=== PATIENT | female | born 1980 | race American Indian/Alaskan Native ===

== ENCOUNTER 2019-02-26 03:56 | Emergency (ER) | payer SELFPAY ==
[2019-02-26] MEDS ORDERED: ASPIRIN 325 MG TAB PO ONE (04:12)
--- NOTE | 2019-02-26 04:34 | XRay Report ---
CHEST 1 VIEW 02/26/2019 4:27 AM INDICATION / CLINICAL INFORMATION: Chest Pain. COMPARISON: 03/05/10 FINDINGS: SUPPORT DEVICES: None. HEART / MEDIASTINUM: No significant abnormality. LUNGS / PLEURA: No significant pulmonary or pleural abnormality. No pneumothorax. ADDITIONAL FINDINGS: No significant additional findings. IMPRESSION: 1. No acute findings. No change. Signer Name: Leigh Sheth MD Signed: 02/26/2019 4:30 AM Workstation Name: [email or web address]
[2019-02-26 04:48] LABS: Hematocrit 23.3 % (30.3-42.9); Hemoglobin 7.2 gm/dl (10.1-14.3); Mean Corpuscular HGB Conc 31 % (30-34); Platelet Count 211 K/mm3 (140-440); Red Blood Count 4.18 M/mm3 (3.65-5.03)
[2019-02-26 04:58] LABS: BUN/Creatinine Ratio 17; Blood Urea Nitrogen 12 mg/dL (7-17); Calcium 9.3 mg/dL (8.4-10.2); Hemolysis Index 0
[2019-02-26 05:02] LABS: Mean Corpuscular Volume 56 fl (79-97); Red Cell Distribution Width 20.4 % (13.2-15.2)
--- NOTE | 2019-02-26 05:37 | Event Note ---
ED Screening Note Time: 05:20 ED Screening Note: This initial assessment/diagnostic orders/clinical plan/treatment(s) is/are subject to change based on patients health status, clinical progression and re- assessment by fellow clinical providers in the ED. Further treatment and workup at subsequent clinical providers discretion. Patient/guardian urged not to elope from the ED as their condition may be serious if not clinically assessed and managed. Initial orders include: BMP and CBC. Patient's 39-year-old female who is presenting with feeling as though her heart is racing.
[2019-02-26 05:44] LABS: Anisocytosis 1+; Band Neutrophils # (Manual) 0.1 K/mm3; Basophils % (Manual) 0 % (0.0-1.8); Platelet Estimate Consistent w Auto; Total Cells Counted 100
--- NOTE | 2019-02-26 06:24 | Emergency Department Report ---
ED Palpitations HPI - General Chief Complaint: Arrhythmia/Palpitations Stated Complaint: TACHYCARDIA Time Seen by Provider: 02/26/19 05:36 Source: patient, EMS Mode of arrival: Ambulatory Limitations: No Limitations - History of Present Illness Initial Comments: Patient is 39 years old female with no significant past medical history except for anemia secondary to uterine fibroids. Patient presented to the ER via EMS complaining of palpitation, on and off for the last few days. Patient stated that her period is 7 days and heavy in the beginning. Patient also complaining of mild shortness of breath but denied any chest pain. No leg edema or swelling or tenderness. Patient also denied any fever, chills, cough, abdominal pain nausea or vomiting or diarrhea. MD Complaint: rapid heart beat, palpitations -: Gradual Context: occured during rest, occured during exertion - Related Data Allergies Allergy/AdvReac Type Severity Reaction Status Date / Time No Known Allergies Allergy Verified 02/26/19 04:03 ED Review of Systems ROS: Stated complaint: TACHYCARDIA Other details as noted in HPI Comment: All other systems reviewed and negative Constitutional: denies: chills, fever Respiratory: shortness of breath. denies: cough, SOB with exertion, SOB at rest, wheezing Cardiovascular: denies: chest pain, palpitations Gastrointestinal: denies: abdominal pain, nausea Genitourinary: abnormal menses Neurological: denies: headache, weakness ED Past Medical Hx - Past Medical History Previous Medical History?: Yes Additional medical history: anemia iron defcency. - Surgical History Past Surgical History?: No - Social History Smoking Status: Never Smoker Substance Use Type: None ED Physical Exam - General Limitations: No Limitations General appearance: alert, in no apparent distress - Head Head exam: Present: atraumatic - Eye Eye exam: Present: normal appearance, PERRL - ENT ENT exam: Present: normal exam, normal orophraynx, mucous membranes moist - Neck Neck exam: Present: normal inspection - Respiratory Respiratory exam: Present: normal lung sounds bilaterally - Cardiovascular Cardiovascular Exam: Present: regular rate, normal rhythm, normal heart sounds - GI/Abdominal GI/Abdominal exam: Present: soft, normal bowel sounds. Absent: distended, tenderness, guarding, rebound, rigid, organomegaly, mass, bruit, pulsatile mass, hernia - Extremities Exam Extremities exam: Present: normal inspection, full ROM, normal capillary refill - Back Exam Back exam: Present: normal inspection, full ROM. Absent: CVA tenderness (R), CVA tenderness (L) - Neurological Exam Neurological exam: Present: alert, oriented X3, CN II-XII intact - Psychiatric Psychiatric exam: Present: normal mood - Skin Skin exam: Present: warm, intact, normal color ED Course Vital Signs 02/26/19 02/26/19 03:57 05:20 Temperature 98.3 F Pulse Rate 103 H Respiratory 18 18 Rate Blood Pressure 140/65 O2 Sat by Pulse 100 100 Oximetry ED Medical Decision Making - Lab Data Result diagrams: 02/26/19 04:14 02/26/19 04:14 - EKG Data -: EKG Interpreted by Mi EKG shows normal: sinus rhythm Rate: normal - EKG Data Interpretation: no acute changes - Radiology Data Radiology results: report reviewed - Medical Decision Making Patient is 39 years old female with no significant past medical history except for anemia secondary to uterine fibroids. Patient presented to the ER via EMS complaining of palpitation, on and off for the last few days. Patient stated that her period is 7 days and heavy in the beginning. Patient also complaining of mild shortness of breath but denied any chest pain. No leg edema or swelling or tenderness. Patient also denied any fever, chills, cough, abdominal pain nausea or vomiting or diarrhea. Patient hemoglobin is 7.2 with MCV of 56 consistent with iron deficiency anemia most likely secondary to excessive menstrual cycle secondary to fibroid. Patient currently is not taking any medication or any iron supplement. No clinical evidence of pulmonary embolism or DVT. Patient given a prescription for iron sulfate and referral to [facility] for further management. Critical care attestation.: If time is entered above; I have spent that time in minutes in the direct care of this critically ill patient, excluding procedure time. ED Disposition Clinical Impression: Palpitation, Iron deficiency anemia Disposition: -01 TO HOME OR SELFCARE Is pt being admited?: No Condition: Stable Instructions: Iron Rich Diet (ED), Iron Deficiency Anemia (ED), Palpitations (ED) Referrals: [facility] [Provider Group] - 3-5 Days Forms: Work/School Release Form(ED)
[2019-02-26 06:40] VITALS: BP 136/72
== END 2019-02-26 06:41 | disposition home or self-care (01) ==
LOC: ED 03:56
DX: D50.9 Iron deficiency anemia, unspecified (principal); R00.2 Palpitations
CPT/HCPCS: 36415; 71045; 80048; 84484; 84703; 85007; 85025; 93005; 93010